=== PATIENT | male | born 1985 | race Caucasian/White ===

== ENCOUNTER 2023-11-14 11:58 | Inpatient (IN) | payer OTHER ==
[2023-11-14 12:35] VITALS: BMI 21.6
[2023-11-14] MEDS ORDERED: NALOXONE HCL (KLOXXADO) 8 MG SPRAY NS PRN (13:28)
[2023-11-14] MEDS ORDERED: hydrOXYzine PAMOATE 25 MG CAPSULE (FP) PO PRN (13:28)
[2023-11-14] MEDS ORDERED: IBUPROFEN 400 MG TABLET (FP) PO PRN (13:28)
[2023-11-14] MEDS ORDERED: guaiFENesin 600 MG TABLET.ER (FP) PO PRN (13:28)
[2023-11-14] MEDS ORDERED: DICYCLOMINE HCL 10 MG CAPSULE PO PRN (13:28)
[2023-11-14] MEDS ORDERED: MAG HYDROX/AL HYDROX/SIMETH 30 ML UNIT-DOSE CUP PO PRN (13:28)
[2023-11-14] MEDS ORDERED: ONDANSETRON *ODT* 4 MG TABLET SL PRN (13:28)
[2023-11-14] MEDS ORDERED: ACETAMINOPHEN 325 MG TABLET (FP) PO PRN (13:28)
[2023-11-14] MEDS ORDERED: MAGNESIUM HYDROX 2400MG/30ML ORAL SUSPENSION 30 ML CUP PO PRN (13:28)
[2023-11-14] MEDS ORDERED: IBUPROFEN 600 MG TABLET (FP) PO PRN (13:28)
[2023-11-14] MEDS ORDERED: BISMUTH SUBSALICYLATE 524 MG/30 ML PO PRN (13:28)
[2023-11-14] MEDS ORDERED: NALOXONE HCL 0.4 MG/ML VIAL IM PRN (13:28)
[2023-11-14] MEDS ORDERED: POLYETHYLENE GLYCOL (HEALTHYLAX) 3350 17 GM PACKET PO PRN (13:28)
[2023-11-14] MEDS ORDERED: LOPERAMIDE HCL 2 MG CAPSULE PO PRN (13:28)
[2023-11-14] MEDS ORDERED: BENZOCAINE/MENTHOL (CHLORASEPTIC ) LOZENGE MM PRN (13:28)
[2023-11-14] MEDS ORDERED: BENZONATATE 200 MG CAPSULE PO PRN (13:28)
[2023-11-14] MEDS ORDERED: METHOCARBAMOL 500 MG TABLET PO PRN (13:28)
[2023-11-14 18:26] VITALS: TEMP 97.9
[2023-11-14 23:19] VITALS: BP 143/83; PULSE 62; RESP 17
[2023-11-14] MEDS: MELATONIN 5 MG TABLETS PO SCH (23:41)
[2023-11-14] MEDS: THIAMINE HCL 100 MG TABLET (FP) PO SCH (23:41)
[2023-11-15] MEDS ORDERED: PRENATAL VITAMINS W/ FOLIC ACID TABLET (FP) PO SCH (10:00)
== END 2023-11-14 23:30 | disposition left against medical advice (07) | DRG 770 ==
LOC: YASAS 11:58 → Y6N 13:48
PROVIDERS: ADMIT Allergy & Immunology; ATTEND Surgery
PROC: HZ2ZZZZ Detoxification Services for Substance Abuse Treatment (ICD-10-PCS; principal; 2023-11-14)
DX: F10.20 Alcohol dependence, uncomplicated (principal); F14.20 Cocaine dependence, uncomplicated; F12.20 Cannabis dependence, uncomplicated; R07.9 Chest pain, unspecified; Z87.891 Personal history of nicotine dependence; Z59.01 Sheltered homelessness; Z88.8 Allergy status to other drugs, medicaments and biological substances
CPT/HCPCS: 80305; 93005; 93010

== ENCOUNTER 2023-11-15 07:05 | Emergency (ER) | payer OTHER ==
[2023-11-15 07:14] VITALS: BP 138/80; PULSE 73; RESP 20; TEMP 98.4; BMI 21.7
== END 2023-11-15 14:51 | disposition home or self-care (01) ==
LOC: JER 07:05
DX: R40.0 Somnolence (principal); T42.4X5A Adverse effect of benzodiazepines, initial encounter
CPT/HCPCS: 99282-25

== ENCOUNTER 2023-12-29 10:28 | Inpatient (IN) | payer OTHER ==
[2023-12-29 11:03] VITALS: BMI 23.8
[2023-12-29] MEDS ORDERED: MAG HYDROX/AL HYDROX/SIMETH 30 ML UNIT-DOSE CUP PO PRN (12:15)
[2023-12-29] MEDS ORDERED: IBUPROFEN 400 MG TABLET (FP) PO PRN (12:15)
[2023-12-29] MEDS ORDERED: chlordiazePOXIDE HCL 25 MG CAPSULE PO PRN (12:15)
[2023-12-29] MEDS ORDERED: ONDANSETRON *ODT* 4 MG TABLET SL PRN (12:15)
[2023-12-29] MEDS ORDERED: BENZOCAINE/MENTHOL (CHLORASEPTIC ) LOZENGE MM PRN (12:15)
[2023-12-29] MEDS ORDERED: hydrOXYzine PAMOATE 25 MG CAPSULE (FP) PO PRN (12:15)
[2023-12-29] MEDS ORDERED: POLYETHYLENE GLYCOL (HEALTHYLAX) 3350 17 GM PACKET PO PRN (12:15)
[2023-12-29] MEDS ORDERED: NALOXONE HCL (KLOXXADO) 8 MG SPRAY NS PRN (12:15)
[2023-12-29] MEDS ORDERED: DICYCLOMINE HCL 10 MG CAPSULE PO PRN (12:15)
[2023-12-29] MEDS ORDERED: LOPERAMIDE HCL 2 MG CAPSULE PO PRN (12:15)
[2023-12-29] MEDS ORDERED: BENZONATATE 200 MG CAPSULE PO PRN (12:15)
[2023-12-29] MEDS ORDERED: MAGNESIUM HYDROX 2400MG/30ML ORAL SUSPENSION 30 ML CUP PO PRN (12:15)
[2023-12-29] MEDS ORDERED: NALOXONE HCL 0.4 MG/ML VIAL IM PRN (12:15)
[2023-12-29] MEDS ORDERED: guaiFENesin 600 MG TABLET.ER (FP) PO PRN (12:15)
[2023-12-29] MEDS: BACITRACIN ZINC 15 GM TUBE TOPICAL OINTMENT TP SCH (12:36)
[2023-12-29] MEDS: chlordiazePOXIDE HCL 25 MG CAPSULE PO SCH (16:33)
[2023-12-29] MEDS: MELATONIN 5 MG TABLETS PO SCH (22:13)
[2023-12-29] MEDS: THIAMINE 100 MG TABLET PO SCH (22:14)
[2023-12-30 09:26] LABS: HEMOGLOBIN 13.7 GM/dL (11.7-16.9); MCH 31.1 pg (25.7-33.7); MCHC 33.4 g/dl (32.0-35.9); MEAN CELL VOLUME 93.1 fl (80-96); MEAN PLT VOLUME 7.5 fl (7.5-11.1); PLATELET COUNT 334 10^3/uL (134-434); RBC 4.41 M/mm3 (4.00-5.60); RDW 14.9 % (11.9-15.9); WHITE BLOOD COUNT 9.6 K/mm3 (4.0-10.0)
[2023-12-30 09:47] LABS: CHLORIDE 107 mmol/L (98-107); POTASSIUM 4.2 mmol/L (3.5-5.1); SODIUM 141 mmol/L (136-145)
[2023-12-30 10:02] LABS: ALBUMIN 3.2 g/dl (3.4-5.0); ANION GAP 7 mmol/L (4-13); BLOOD UREA NITROGEN 16.4 mg/dL (7-18); CALCIUM 8.7 mg/dL (8.5-10.1); CO2 26 mmol/L (21-32); GLUCOSE,RANDOM 88 mg/dL (74-106)
[2023-12-30 10:05] LABS: CREATININE 0.8 mg/dL (0.55-1.3); SGOT/AST 13 U/L (15-37); SGPT/ALT 16 U/L (13-61)
[2023-12-30 10:07] LABS: BILIRUBIN,TOTAL 0.9 mg/dL (0.2-1); TOT PROT 6.3 g/dl (6.4-8.2)
[2023-12-30 10:08] LABS: ALK PHOS 86 U/L (45-117)
[2023-12-30] MEDS: PRENATAL VITAMINS W/ FOLIC ACID TABLET (FP) PO SCH (10:47)
[2023-12-30] MEDS: ACETAMINOPHEN 325 MG TABLET (FP) PO PRN (17:38)
[2023-12-30] MEDS: QUEtiapine FUMARATE 100 MG TABLET (FP) PO SCH (22:30)
[2023-12-31] MEDS: chlordiazePOXIDE HCL 25 MG CAPSULE PO SCH (05:49)
[2023-12-31] MEDS: LACTULOSE 20 GM/30 ML UDC (FOR ORAL USE ONLY) PO SCH (15:21)
[2023-12-31] MEDS: IBUPROFEN 600 MG TABLET (FP) PO PRN (15:47)
[2023-12-31] MEDS: METHOCARBAMOL 500 MG TABLET PO PRN (15:47)
[2024-01-01] MEDS ORDERED: chlordiazePOXIDE HCL 10 MG CAPSULE PO PRN
[2024-01-01 03:07] LABS: COCAINE QUALITATIVE URINE Positive ng/mL (Cutoff=300); MARIJUANA QL URINE CANNABINOID Positive ng/mL (Cutoff=50); METHADONE,QUALITATIVE URINE Negative ng/mL (Cutoff=300); OPIATES QL URINE Negative ng/mL (Cutoff=300); PHENCYCLIDINE,QUAL URINE Negative ng/mL (Cutoff=25); PROPOXYPHENE QL URINE Negative ng/mL (Cutoff=300); URINE AMPHETAMINES Negative ng/mL (Cutoff=1000)
[2024-01-01] MEDS: chlordiazePOXIDE HCL 10 MG CAPSULE PO SCH (05:57)
[2024-01-01] MEDS: BISMUTH SUBSALICYLATE 524 MG/30 ML PO PRN (18:30)
[2024-01-02] MEDS: chlordiazePOXIDE HCL 10 MG CAPSULE PO SCH (05:40)
[2024-01-03] MEDS: chlordiazePOXIDE HCL 10 MG CAPSULE PO ONE (05:46)
[2024-01-03 06:29] VITALS: TEMP 97.6
[2024-01-03 09:32] VITALS: BP 107/62; PULSE 79; RESP 16
[2024-01-03 12:28] LABS: BASO % 0.6 % (0-2.0); EOS % 4.8 % (0-4.5); HEMATOCRIT 41.1 % (35.4-49); HEMOGLOBIN 13.6 GM/dL (11.7-16.9); LYMPH % 47.2 % (8-40); MCH 31.1 pg (25.7-33.7); MCHC 33.1 g/dl (32.0-35.9); MEAN PLT VOLUME 7.4 fl (7.5-11.1); MONO % 8.1 % (3.8-10.2); NEUT % 39.3 % (42.8-82.8); PLATELET COUNT 289 10^3/uL (134-434); RBC 4.38 M/mm3 (4.00-5.60); RDW 14.6 % (11.9-15.9); WHITE BLOOD COUNT 6.2 K/mm3 (4.0-10.0)
[2024-01-03 12:46] LABS: POTASSIUM 4.2 mmol/L (3.5-5.1)
[2024-01-03 12:48] LABS: CALCIUM 8.8 mg/dL (8.5-10.1)
[2024-01-03 12:52] LABS: CREATININE 0.7 mg/dL (0.55-1.3)
== END 2024-01-03 10:05 | disposition home or self-care (01) | DRG 774 ==
LOC: YASAS 10:28 → Y3N 12:32
PROVIDERS: ADMIT Allergy & Immunology; ATTEND Surgery
PROC: HZ2ZZZZ Detoxification Services for Substance Abuse Treatment (ICD-10-PCS; principal; 2023-12-29)
DX: F10.230 Alcohol dependence with withdrawal, uncomplicated (principal); F14.20 Cocaine dependence, uncomplicated; F12.20 Cannabis dependence, uncomplicated; F32.A Depression, unspecified; F19.94 Other psychoactive substance use, unspecified with psychoactive substance-induced mood disorder; F41.9 Anxiety disorder, unspecified; E86.0 Dehydration; E72.20 Disorder of urea cycle metabolism, unspecified; M54.59 Other low back pain; G89.29 Other chronic pain; G47.00 Insomnia, unspecified; S00.01XA Abrasion of scalp, initial encounter; X58.XXXA Exposure to other specified factors, initial encounter; Y93.9 Activity, unspecified; Y92.9 Unspecified place or not applicable; Z86.19 Personal history of other infectious and parasitic diseases; Z91.148 Patient's other noncompliance with medication regimen for other reason; Z88.8 Allergy status to other drugs, medicaments and biological substances; Z91.013 Allergy to seafood; Z56.0 Unemployment, unspecified; Z59.00 Homelessness unspecified
CPT/HCPCS: 36415; 80048; 80053; 80305; 80307; 82140; 85025; 85027; 86593; 86780; 93005; 93010

== ENCOUNTER 2024-01-03 15:23 | Inpatient (IN) | payer OTHER ==
[2024-01-03 16:57] VITALS: BMI 21.7
[2024-01-03] MEDS ORDERED: guaiFENesin 600 MG TABLET.ER (FP) PO PRN (20:06)
[2024-01-03] MEDS ORDERED: BENZOCAINE/MENTHOL (CHLORASEPTIC ) LOZENGE MM PRN (20:06)
[2024-01-03] MEDS ORDERED: BENZONATATE 200 MG CAPSULE PO PRN (20:06)
[2024-01-03] MEDS ORDERED: LOPERAMIDE HCL 2 MG CAPSULE PO PRN (20:06)
[2024-01-03] MEDS ORDERED: POLYETHYLENE GLYCOL (HEALTHYLAX) 3350 17 GM PACKET PO PRN (20:06)
[2024-01-03] MEDS ORDERED: MAG HYDROX/AL HYDROX/SIMETH 30 ML UNIT-DOSE CUP PO PRN (20:06)
[2024-01-03] MEDS ORDERED: NALOXONE (NYS OPIOID OVERDOSE PROGRAM) 4 MG/0.1 ML SPRAY NS PRN (20:06)
[2024-01-03] MEDS ORDERED: ACETAMINOPHEN 325 MG TABLET (FP) PO PRN (20:06)
[2024-01-03] MEDS ORDERED: NALOXONE HCL 0.4 MG/ML VIAL IVPUSH PRN (20:06)
[2024-01-03] MEDS ORDERED: MAGNESIUM HYDROX 2400MG/30ML ORAL SUSPENSION 30 ML CUP PO PRN (20:06)
[2024-01-03] MEDS: QUEtiapine FUMARATE 100 MG TABLET (FP) PO SCH (21:40)
[2024-01-03] MEDS: MELATONIN 5 MG TABLETS PO SCH (21:40)
[2024-01-03] MEDS: LACTULOSE 20 GM/30 ML UDC (FOR ORAL USE ONLY) PO SCH (21:40)
[2024-01-03] MEDS: THIAMINE 100 MG TABLET PO SCH (21:40)
[2024-01-04] MEDS: PRENATAL VITAMINS W/ FOLIC ACID TABLET (FP) PO SCH (10:07)
[2024-01-04] MEDS: GABAPENTIN 100 MG CAPSULE PO SCH (10:09)
[2024-01-04] MEDS ORDERED: GABAPENTIN 100 MG CAPSULE PO SCH (14:00)
[2024-01-04] MEDS: PRAZOSIN HCL 1 MG CAPSULE PO SCH (21:05)
[2024-01-06] MEDS: IBUPROFEN 600 MG TABLET (FP) PO PRN (15:58)
[2024-01-06] MEDS: SODIUM CHLORIDE NASAL SPRAY 44 ML BOTTLE NS PRN (21:54)
[2024-01-07] MEDS: NALTREXONE HCL 50 MG TABLET PO ONE (10:10)
[2024-01-07 10:58] LABS: INR 0.96 (0.83-1.09); PROTHROMBIN TIME (PATIENT) 10.9 SEC (9.7-13.0)
[2024-01-07 14:17] LABS: HIV INTERPRETATION NEGATIVE (NEGATIVE)
[2024-01-07] MEDS: METHOCARBAMOL 500 MG TABLET PO PRN (19:14)
[2024-01-08] MEDS: NALTREXONE HCL 50 MG TABLET PO SCH (09:51)
[2024-01-08] MEDS: CHOLECALCIFEROL (VIT D3) 1,000 UNIT (25 MCG) TABLET PO SCH (09:52)
[2024-01-09] MEDS: ONDANSETRON *ODT* 4 MG TABLET SL PRN (11:08)
[2024-01-09] MEDS: IBUPROFEN 400 MG TABLET (FP) PO PRN (21:28)
[2024-01-15] MEDS: BACLOFEN 10 MG TABLET (FP) PO SCH (11:59)
[2024-01-15] MEDS: ARTIFICIAL TEARS OPHTHALMIC DROPS OU PRN (21:17)
[2024-01-15] MEDS: LACTULOSE 20 GM/30 ML UDC (FOR ORAL USE ONLY) PO SCH (21:18)
[2024-01-22] MEDS: LIDOCAINE 4% PATCH TP SCH (12:23)
[2024-01-22] MEDS: LIDOCAINE PATCH REMOVAL MC SCH (21:40)
[2024-01-23] MEDS: QUEtiapine FUMARATE 25 MG TABLET PO PRN (15:16)
[2024-01-23] MEDS ORDERED: MELATONIN 5 MG TABLETS PO PRN (22:00)
[2024-01-26 22:24] VITALS: RESP 18
[2024-01-29 16:51] LABS: POTASSIUM 4.1 mmol/L (3.5-5.1)
[2024-01-29 16:57] LABS: CALCIUM 9.5 mg/dL (8.5-10.1)
[2024-01-29 16:58] LABS: ALBUMIN 4.1 g/dl (3.4-5.0); BLOOD UREA NITROGEN 18.3 mg/dL (7-18)
[2024-01-29 16:59] LABS: CREATININE 0.9 mg/dL (0.55-1.3)
[2024-01-29 17:01] LABS: BILIRUBIN,TOTAL 0.6 mg/dL (0.2-1); TOT PROT 7.4 g/dl (6.4-8.2)
[2024-01-31 06:39] VITALS: BP 116/80; PULSE 79; TEMP 96.4
[2024-01-31] MEDS: NALTREXONE MICROSPHERES (VIVITROL) 380 MG DISP.SYRIN IM ONE (10:15)
== END 2024-01-31 10:43 | disposition home or self-care (01) | DRG 772 ==
LOC: YASAS 15:23 → Y5N 20:43
PROVIDERS: ADMIT Allergy & Immunology; ATTEND Psychiatry & Neurology Pain Medicine
PROC: HZ42ZZZ Group Counseling for Substance Abuse Treatment, Cognitive-Behavioral (ICD-10-PCS; principal; 2024-01-03)
DX: F10.20 Alcohol dependence, uncomplicated (principal); F14.20 Cocaine dependence, uncomplicated; F12.20 Cannabis dependence, uncomplicated; F31.9 Bipolar disorder, unspecified; F41.9 Anxiety disorder, unspecified; F43.10 Post-traumatic stress disorder, unspecified; E72.20 Disorder of urea cycle metabolism, unspecified; E55.9 Vitamin D deficiency, unspecified; M54.50 Low back pain, unspecified; G89.29 Other chronic pain; Z56.0 Unemployment, unspecified; Z88.8 Allergy status to other drugs, medicaments and biological substances
CPT/HCPCS: 0241U-QW; 36415; 80053; 80305; 80307; 82140; 82306; 83735; 85610; 86803; 87389; J0475; J2315; Q0162

== ENCOUNTER 2024-11-12 08:26 | Inpatient (IN) | payer OTHER ==
[2024-11-12 08:42] VITALS: BMI 22.6
[2024-11-12] MEDS ORDERED: IBUPROFEN 400 MG TABLET (FP) PO PRN (09:12)
[2024-11-12] MEDS ORDERED: POLYETHYLENE GLYCOL (HEALTHYLAX) 3350 17 GM PACKET PO PRN (09:12)
[2024-11-12] MEDS ORDERED: BISMUTH SUBSALICYLATE 262 MG/15 ML BTL PO PRN (09:12)
[2024-11-12] MEDS ORDERED: LOPERAMIDE HCL 2 MG CAPSULE PO PRN (09:12)
[2024-11-12] MEDS ORDERED: guaiFENesin 600 MG TABLET.ER (FP) PO PRN (09:12)
[2024-11-12] MEDS ORDERED: MAG HYDROX/AL HYDROX/SIMETH 30 ML UNIT-DOSE CUP PO PRN (09:12)
[2024-11-12] MEDS ORDERED: ACETAMINOPHEN 325 MG TABLET (FP) PO PRN (09:12)
[2024-11-12] MEDS ORDERED: IBUPROFEN 600 MG TABLET (FP) PO PRN (09:12)
[2024-11-12] MEDS ORDERED: BENZOCAINE/MENTHOL (CHLORASEPTIC ) LOZENGE MM PRN (09:12)
[2024-11-12] MEDS ORDERED: BENZONATATE 200 MG CAPSULE PO PRN (09:12)
[2024-11-12] MEDS ORDERED: hydrOXYzine PAMOATE 25 MG CAPSULE (FP) PO PRN (09:12)
[2024-11-12] MEDS ORDERED: NALOXONE (NARCAN) HCL 4 MG/0.1 ML SPRAY NS PRN (09:12)
[2024-11-12] MEDS ORDERED: METHOCARBAMOL 500 MG TABLET PO PRN (09:12)
[2024-11-12] MEDS ORDERED: MAGNESIUM HYDROX 2400MG/30ML ORAL SUSPENSION 30 ML CUP PO PRN (09:12)
[2024-11-12] MEDS ORDERED: DICYCLOMINE HCL 10 MG CAPSULE PO PRN (09:12)
[2024-11-12] MEDS ORDERED: GABAPENTIN 100 MG CAPSULE ONE (10:05)
[2024-11-12] MEDS ORDERED: PRENATAL VITAMINS W/ FOLIC ACID TABLET (FP) PO ONE (10:05)
[2024-11-12] MEDS ORDERED: chlordiazePOXIDE HCL 25 MG CAPSULE ONE (10:05)
[2024-11-12] MEDS: PRENATAL VITAMINS W/ FOLIC ACID TABLET (FP) PO SCH (10:07)
[2024-11-12] MEDS: GABAPENTIN 100 MG CAPSULE PO SCH (10:07)
[2024-11-12] MEDS: chlordiazePOXIDE HCL 25 MG CAPSULE PO SCH (10:07)
[2024-11-12] MEDS: NALTREXONE HCL 50 MG TABLET PO SCH (10:28)
[2024-11-12] MEDS: BACLOFEN 10 MG TABLET (FP) PO SCH (11:37)
[2024-11-12] MEDS: THIAMINE 100 MG TABLET PO SCH (23:48)
[2024-11-12] MEDS: MELATONIN 5 MG TABLETS PO SCH (23:48)
[2024-11-12] MEDS: PRAZOSIN HCL 1 MG CAPSULE PO SCH (23:48)
[2024-11-13 11:01] LABS: HEMATOCRIT 40.9 % (40.1-51.0); HEMOGLOBIN 13.1 g/dL (13.7-17.5); MEAN CELL VOLUME 91.7 fl (79.0-92.2); PLATELET COUNT # 321 x10^3/uL (163-337); RDW 14.6 % (12.1-15.9)
[2024-11-13 11:06] LABS: POTASSIUM 3.8 mmol/L (3.5-5.1)
[2024-11-13 11:18] LABS: ALBUMIN 3.9 g/dl (3.4-5.0); CALCIUM 9.3 mg/dL (8.5-10.1)
[2024-11-13 11:21] LABS: BILIRUBIN,TOTAL 0.5 mg/dL (0.2-1); TOT PROT 6.8 g/dl (6.4-8.2)
[2024-11-14] MEDS: chlordiazePOXIDE HCL 25 MG CAPSULE PO SCH (05:36)
[2024-11-14] MEDS: chlordiazePOXIDE HCL 25 MG CAPSULE PO PRN (22:40)
[2024-11-14] MEDS: ONDANSETRON *ODT* 4 MG TABLET SL PRN (22:43)
[2024-11-15] MEDS ORDERED: chlordiazePOXIDE HCL 10 MG CAPSULE PO PRN
[2024-11-15] MEDS: chlordiazePOXIDE HCL 10 MG CAPSULE PO SCH (05:55)
[2024-11-15] MEDS: chlordiazePOXIDE 5 MG CAPSULE PO SCH (17:01)
[2024-11-15] MEDS ORDERED: QUEtiapine FUMARATE 50 MG TABLET PO PRN ×2 (22:00)
[2024-11-15] MEDS: QUEtiapine FUMARATE 50 MG TABLET PO PRN (22:04)
[2024-11-15] MEDS: MELATONIN 5 MG TABLETS PO ONE (23:48)
[2024-11-16] MEDS ORDERED: chlordiazePOXIDE HCL 10 MG CAPSULE PO SCH (05:00)
[2024-11-16] MEDS: chlordiazePOXIDE 5 MG CAPSULE PO SCH (06:00)
[2024-11-16 21:02] VITALS: BP 127/77; PULSE 86; RESP 16; TEMP 97.3
[2024-11-17] MEDS ORDERED: chlordiazePOXIDE HCL 10 MG CAPSULE PO ONE (05:00)
[2024-11-17] MEDS: chlordiazePOXIDE 5 MG CAPSULE PO ONE (06:00)
== END 2024-11-17 09:37 | disposition home or self-care (01) | DRG 774 ==
LOC: YASAS 08:26 → Y6N 09:38
PROVIDERS: ADMIT Allergy & Immunology; ATTEND Allergy & Immunology
PROC: HZ2ZZZZ Detoxification Services for Substance Abuse Treatment (ICD-10-PCS; principal; 2024-11-12)
DX: F10.230 Alcohol dependence with withdrawal, uncomplicated (principal); F14.20 Cocaine dependence, uncomplicated; F12.20 Cannabis dependence, uncomplicated; F31.9 Bipolar disorder, unspecified; F19.282 Other psychoactive substance dependence with psychoactive substance-induced sleep disorder; F41.9 Anxiety disorder, unspecified; F43.10 Post-traumatic stress disorder, unspecified; Z87.891 Personal history of nicotine dependence; Z86.59 Personal history of other mental and behavioral disorders; Z88.8 Allergy status to other drugs, medicaments and biological substances; Z56.0 Unemployment, unspecified; Z59.00 Homelessness unspecified
CPT/HCPCS: 36415; 80053; 80305; 80307; 85027; 86593; 86780; 93005; 93010; J0475; Q0162

== ENCOUNTER 2025-04-13 13:34 | Inpatient (IN) | payer OTHER ==
[2025-04-13 14:04] VITALS: BMI 20.9
[2025-04-13] MEDS ORDERED: LOPERAMIDE HCL 2 MG CAPSULE PO PRN (14:32)
[2025-04-13] MEDS ORDERED: IBUPROFEN 600 MG TABLET (FP) PO PRN (14:32)
[2025-04-13] MEDS ORDERED: MAGNESIUM HYDROX 2400MG/30ML ORAL SUSPENSION 30 ML CUP PO PRN (14:32)
[2025-04-13] MEDS ORDERED: ACETAMINOPHEN 325 MG TABLET (FP) PO PRN (14:32)
[2025-04-13] MEDS ORDERED: BISMUTH SUBSALICYLATE 524 MG/30 ML PO PRN (14:32)
[2025-04-13] MEDS ORDERED: IBUPROFEN 400 MG TABLET (FP) PO PRN (14:32)
[2025-04-13] MEDS ORDERED: POLYETHYLENE GLYCOL (HEALTHYLAX) 3350 17 GM PACKET PO PRN (14:32)
[2025-04-13] MEDS ORDERED: guaiFENesin 600 MG TABLET.ER (FP) PO PRN (14:32)
[2025-04-13] MEDS ORDERED: BENZONATATE 200 MG CAPSULE PO PRN (14:32)
[2025-04-13] MEDS ORDERED: BENZOCAINE/MENTHOL (CHLORASEPTIC ) LOZENGE MM PRN (14:32)
[2025-04-13] MEDS ORDERED: NALOXONE (NARCAN) HCL 4 MG/0.1 ML SPRAY NS PRN (14:32)
[2025-04-13] MEDS: MAG HYDROX/AL HYDROX/SIMETH 30 ML UNIT-DOSE CUP PO PRN (15:44)
[2025-04-13] MEDS: THIAMINE 100 MG TABLET PO SCH (22:42)
[2025-04-13] MEDS: MELATONIN 5 MG TABLETS PO SCH (22:42)
[2025-04-14] MEDS: PRENATAL VITAMINS W/ FOLIC ACID TABLET (FP) PO SCH (10:28)
[2025-04-14] MEDS: ONDANSETRON *ODT* 4 MG TABLET SL PRN (10:30)
[2025-04-14 10:33] LABS: MCHC 32.3 g/dl (32.3-36.5); MEAN CELL VOLUME 93.5 fl (79.0-92.2); MEAN PLT VOLUME 10.0 fl (9.4-12.4); RDW 14.6 % (12.1-15.9)
[2025-04-14 12:06] LABS: GLUCOSE,RANDOM 88.0 mg/dL (74-106); TOT PROT 4.9 g/dl (6.4-8.2)
[2025-04-14 12:07] LABS: ALK PHOS 45.0 U/L (40-150); CO2 27.0 mmol/L (21-32); CREATININE 0.83 mg/dL (0.55-1.3); SGOT/AST 20.0 U/L (5-34); SGPT/ALT 11.0 U/L (0-55)
[2025-04-14 12:09] LABS: HCV DIAGNOSTIC IN-HOUSE W/RFLX NON-REACTIVE (NONREACTIVE); SYPHILIS W/ RPR CONF NON-REACTIVE (NONREACTIVE)
[2025-04-14] MEDS: PNEUMOC 20-VAL CONJ-DIP CRM/PF 0.5 ML SYRINGE IM ONE (12:58)
[2025-04-14] MEDS: GABAPENTIN 300 MG CAPSULE PO SCH (13:30)
[2025-04-14] MEDS: DICYCLOMINE HCL 10 MG CAPSULE PO PRN (17:48)
[2025-04-14] MEDS: hydrOXYzine PAMOATE 50 MG CAPSULE (FP) PO PRN (18:08)
[2025-04-14] MEDS: METHOCARBAMOL 500 MG TABLET PO PRN (18:08)
[2025-04-14] MEDS: PRAZOSIN HCL 1 MG CAPSULE PO SCH (23:32)
[2025-04-15 07:07] VITALS: RESP 16
[2025-04-15 12:45] VITALS: BP 99/60; PULSE 64; TEMP 97.8
== END 2025-04-15 13:02 | disposition left against medical advice (07) | DRG 775 ==
LOC: YASAS 13:34 → Y6N 15:06
PROVIDERS: ADMIT Allergy & Immunology; ATTEND Allergy & Immunology
PROC: HZ2ZZZZ Detoxification Services for Substance Abuse Treatment (ICD-10-PCS; principal; 2025-04-13)
DX: F10.230 Alcohol dependence with withdrawal, uncomplicated (principal); F13.20 Sedative, hypnotic or anxiolytic dependence, uncomplicated; F12.20 Cannabis dependence, uncomplicated; F18.288 Inhalant dependence with other inhalant-induced disorder; F31.9 Bipolar disorder, unspecified; F10.280 Alcohol dependence with alcohol-induced anxiety disorder; F10.282 Alcohol dependence with alcohol-induced sleep disorder; F39 Unspecified mood [affective] disorder; M54.50 Low back pain, unspecified; G89.29 Other chronic pain; F91.8 Other conduct disorders; Z91.199 Patient's noncompliance with other medical treatment and regimen due to unspecified reason; Z59.00 Homelessness unspecified; Z88.8 Allergy status to other drugs, medicaments and biological substances
CPT/HCPCS: 36415; 80053; 80307; 85027; 86780; 86803; Q0162